=== PATIENT | male | born 1935 | race Caucasian/White ===

== ENCOUNTER 2021-02-09 11:00 | Outpatient (CLI) | payer MEDICARE, BC | END 2021-02-09 23:59 | disposition home health service (06) | LOC: WOU 11:00 | PROVIDERS: ATTEND Surgery | DX: L89.153 Pressure ulcer of sacral region, stage 3 (principal); L30.4 Erythema intertrigo; S81.812A Laceration without foreign body, left lower leg, initial encounter; S81.811A Laceration without foreign body, right lower leg, initial encounter; S41.112A Laceration without foreign body of left upper arm, initial encounter; S41.111A Laceration without foreign body of right upper arm, initial encounter; S91.115A Laceration without foreign body of left lesser toe(s) without damage to nail, initial encounter; W18.30XA Fall on same level, unspecified, initial encounter; Y92.89 Other specified places as the place of occurrence of the external cause; L60.3 Nail dystrophy; Z79.01 Long term (current) use of anticoagulants; Z79.899 Other long term (current) drug therapy | CPT/HCPCS: 11042; A6209 ==